=== PATIENT | male | born 1985 | race Caucasian/White ===

== ENCOUNTER 2021-03-13 13:38 | Emergency (ER) | payer OTHER ==
[2021-03-13] MEDS ORDERED: NAPROXEN500 MG PO (15:08)
== END 2021-03-13 15:42 | disposition home or self-care (01) ==
LOC: FER 13:38
DX: S80.812A Abrasion, left lower leg, initial encounter (principal); T14.8XXA Other injury of unspecified body region, initial encounter; M54.2 Cervicalgia; M25.512 Pain in left shoulder; M54.5 Low back pain; M54.6 Pain in thoracic spine; V57.9XXA Unspecified occupant of pick-up truck or van injured in collision with fixed or stationary object in traffic accident, initial encounter; Y92.410 Unspecified street and highway as the place of occurrence of the external cause
CPT/HCPCS: 71045; 72125; 72128; 72131; 72170; 73020; 73590

== ENCOUNTER 2021-03-15 16:10 | Emergency (ER) | payer OTHER ==
[~2021-03-15 16:10] MED LIST: NAPROXEN500 MG PO
[2021-03-15 17:26] LABS: BILIRUBIN NEGATIVE (NEGATIVE); BLOOD NEGATIVE Ery/uL (NEGATIVE); CLARITY CLEAR (CLEAR); COLOR YELLOW (YELLOW); GLUCOSE (U) NORMAL (NORMAL); LEUKOCYTES NEGATIVE Leu/uL (NEGATIVE); NITRITE NEGATIVE (NEGATIVE); PROTEIN NEGATIVE (NEGATIVE); pH 6.5 (5.0-9.0)
[2021-03-15 17:34] LABS: AMPHETAMINES NEGATIVE (NEGATIVE); BARBITURATES NEGATIVE (NEGATIVE); ECSTASY (MDMA) NEGATIVE (NEGATIVE); MARIJUANA (THC) NEGATIVE (NEGATIVE); METHADONE NEGATIVE (NEGATIVE); OPIATES NEGATIVE (NEGATIVE); OXYCODONE NEGATIVE (NEGATIVE)
== END 2021-03-15 18:14 | disposition home or self-care (01) ==
LOC: FER 16:10
PROVIDERS: Emergency Medicine
DX: F19.10 Other psychoactive substance abuse, uncomplicated (principal); S60.511A Abrasion of right hand, initial encounter; W22.8XXA Striking against or struck by other objects, initial encounter
CPT/HCPCS: 36415; 71046; 73130; 80305; 81003; 84484; 93005; G0480